=== PATIENT | male | born 1950 | race Hispanic/Latino ===

== ENCOUNTER 2018-05-31 16:01 | Emergency (ER) | payer MEDICARE, OTHER ==
[~2018-05-31] VITALS: Ht 175.3 cm; Wt 104.3 kg
[~2018-05-31 16:01] MED LIST: AMARYL2 MG PO; AMLODIPINE BESY10 MG PO; ATENOLOL50 MG PO
[2018-05-31] MEDS ORDERED: KETOROLAC TROMETHAMINE 30 MG/ML VIAL IM PRN (17:00)
--- NOTE | 2018-05-31 18:30 | Diagnostic Imaging Report ---
EXAM: ELBOW RIGHT COMPLETE DATE: 05/31/2018 4:22 PM INDICATION: Pain COMPARISON: None FINDINGS: Large olecranon enthesophyte. No soft tissue swelling. No joint effusion. No fracture. Radiocapitellar alignment is intact. IMPRESSION: No acute findings. Signed by: Dr. Bossman Son MD on 05/31/2018 6:26 PM
--- NOTE | 2018-05-31 18:30 | Diagnostic Imaging Report ---
EXAM: HUMERUS RIGHT 2+VIEWS DATE: 05/31/2018 4:22 PM INDICATION: Pain COMPARISON: None FINDINGS: No fracture subluxation. Soft tissues are unremarkable. IMPRESSION: No acute findings. Signed by: Dr. Bossman Son MD on 05/31/2018 6:27 PM
[2018-05-31] MEDS ORDERED: ULTRAM50 MG PO (18:33)
== END 2018-05-31 18:44 | disposition home or self-care (01) ==
LOC: ER 16:01
DX: S40.021A Contusion of right upper arm, initial encounter (principal); W01.0XXA Fall on same level from slipping, tripping and stumbling without subsequent striking against object, initial encounter; Y92.008 Other place in unspecified non-institutional (private) residence as the place of occurrence of the external cause
CPT/HCPCS: 73060; 73080; 99283; J1885

== ENCOUNTER → 2018-07-10 | Outpatient (CLI) | payer MEDICARE ==
[~2018-07-10] MED LIST changes: +ULTRAM50 MG PO
--- NOTE | 2018-07-10 13:04 | Diagnostic Imaging Report ---
TECHNIQUE: Magnetic resonance imaging of the RIGHT SHOULDER was performed WITHOUT injected contrast. Internal rotation of the humeral head which partially limits the examination. HISTORY: Pain, fall, hit shoulder COMPARISON: Right humerus radiographs May 31, 2018. FINDINGS: Motion artifact and suboptimal positioning partially limits sensitivity and specificity of the exam. MUSCLES AND TENDONS: Rotator Cuff: Tendons: Supraspinatus and Infraspinatus: Focal, low-grade, intrasubstance, partial thickness tear of the anterior supraspinatus tendon. No high-grade tear or tendon retraction. Teres Minor: Intact Subscapularis: Low-grade partial-thickness intrasubstance tearing of the superior fibers. Muscles: No focal muscle atrophy. Biceps Tendon: The long head of the biceps tendon is within the intertubercular groove. Thickening and increased intrasubstance signal of the intra-articular portion. GLENOHUMERAL JOINT: Glenoid Labrum: Prominent complex tearing and attenuation centered at the posteroinferior labrum with extension into the adjacent inferior and posterior labrum. Mild attenuation and degenerative tearing of the posterosuperior labrum. Articular Cartilage: Diffuse low to intermediate grade erosion. Joint Fluid: Trace effusion and synovitis. ACROMIOCLAVICULAR JOINT: Severe hypertrophic degenerative changes of the acromioclavicular joint. Synovitis and trace effusion. BONE: The acromion is unremarkable. No focal or infiltrative bone marrow replacing abnormality. No acute fracture. SOFT TISSUES: Otherwise, unremarkable. IMPRESSION: 1. 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 2. Low-grade partial-thickness intrasubstance tearing of the superior fibers of the subscapularis tendon. 3. Small focal intrasubstance partial thickness tear of the anterior supraspinatus tendon. 4. Long head of biceps tendinosis. Signed by: Nithya Colon.Rob., M.M.M. on 07/10/2018 1:01 PM
== END ==
LOC: MRI 09:15
PROVIDERS: ATTEND Family Medicine
DX: M25.511 Pain in right shoulder (principal); W18.30XA Fall on same level, unspecified, initial encounter